=== PATIENT | male | born 1980 | race Caucasian/White ===

== ENCOUNTER 2022-07-12 17:05 | Emergency (ER) | payer BC, SELFPAY ==
--- NOTE | 2022-07-12 17:12 | ED.URI ---
HPI - URI/Sore Throat General Chief Complaint: Upper Respiratory Infection Stated Complaint: ear pain, congestion, cough Time Seen by Provider: 07/12/22 17:13 Source: patient Mode of arrival: ambulatory Limitations: no limitations History of Present Illness HPI Narrative: Mr. Em is a 41-year-old male patient presenting to the clinic today with complaints of low-grade fever, chest congestion, ear pain, and cough x1.5 weeks He reports he is bringing up some brown/green phlegm when he coughs. He denies any known exposure to anyone with COVID, flu, or strep. Related Data Home Medications Medication Instructions Recorded Confirmed losartan 50 mg tablet 50 mg PO HS 07/12/22 07/12/22 omeprazole 40 mg capsule,delayed 40 mg PO DAILY 07/12/22 07/12/22 release sumatriptan 5 mg/actuation nasal 5 mg intranasal DAILY 07/12/22 07/12/22 spray trazodone 100 mg tablet 100 mg PO HS 07/12/22 07/12/22 Allergies Allergy/AdvReac Type Severity Reaction Status Date / Time No Known Allergies Allergy Mild Verified 07/12/22 17:20 PMFSH Comments At the time of my signature, I reviewed and agree with the nursing past medical, surgical, social, and family history. There is no relevant family history pertinent to the patient complaint. Exam Narrative: General: Well-developed, well nourished, in no apparent distress Head: Normocephalic, atraumatic Eyes: Pupils equally round and reactive to light bilaterally, EOM intact, sclera and conjunctive clear, no discharge, lids normal Ears: TMs intact and dull with mild TM bulging ear canals clear, no drainage, grossly hearing normal. Nose: Nares patent, clear nasal discharge, moderate inflammation, frontal sinus tenderness. Mouth: Oropharynx without lesions or masses, good dentition, MMM. Postnasal drip Neck: Supple, trachea midline, no enlargement of anterior or posterior cervical nodes, no thyroid masses or goiter palpable. Cardio: Regular rate and rhythm, s1 and s2 normal, no murmur appreciated. Resp: Lung sounds mildly coarse, no rhonchi, rales, wheezing or rubs Course Course Emergency Course: Portions of this record may have been created with voice recognition software. Level of Care: Express Care Visit Vital Signs Vital signs: Vital signs reviewed MDM - URI/Sore Throat MDM Narrative Medical decision making narrative: At the time of visit patient is resting comfortably on exam table. I suspect the patient has acute rhinosinusitis as well as bronchitis. Prescriptions for albuterol, Augmentin, and prednisone was sent to the pharmacy. Supportive measures were discussed with the patient and his and they voiced understanding of discharge instructions and agreed to the treatment plan. Differential Diagnosis Differential diagnosis: Likely upper respiratory infection, otitis media, sinusitis, viral infection, bronchitis, influenza, pharyngitis and other (COVID) Discharge Plan Discharge Clinical Impression: Sinusitis, Bronchitis Patient Disposition: Home, Self-Care Condition: Stable Instructions: Antibiotic Form, Acute Bronchitis (ED), Rhinosinusitis (ED) Additional Instructions: Take prescription medications only as prescribed-take prednisone, Augmentin, and albuterol as prescribed Increase fluids and stay well hydrated Tylenol/motrin for pain/fever Flonase and OTC antihistamines as directed Vicks vapor rub to open sinuses Sinus rinses for congestion Cepacol spray, cough drops, throat lozenges, warm tea with honey/lemon, gargle salt water to soothe throat BRAT diet for diarrhea Clear liquids x 24 hours then advance as tolerated for nausea/vomiting May return to the clinic if symptoms worsen Go to the ED if you develop a worsening in your condition- high fever not controlled by Tylenol or Motrin, dehydration, weakness, lethargy, shortness of breath, or chest pain. Follow up with your PCP in 3-5 days if symptoms persist. Prescriptions: New a
[2022-07-12 17:18] VITALS: BP 143/100; PULSE 89; RESP 18; TEMP 37.3; O2SAT 100
== END 2022-07-12 17:35 | disposition home or self-care (01) ==
PROVIDERS: Emergency Provider Nurse Practitioner Family; PCP Internal Medicine Infectious Disease
DX: J32.9 Chronic sinusitis, unspecified (principal); J40 Bronchitis, not specified as acute or chronic; I10 Essential (primary) hypertension; K21.9 Gastro-esophageal reflux disease without esophagitis; Z86.16 Personal history of COVID-19
CPT/HCPCS: 99203; G0463

== ENCOUNTER 2022-07-19 17:18 | Emergency (ER) | payer BC, SELFPAY ==
[2022-07-19 17:29] VITALS: BP 143/98; PULSE 73; RESP 16; TEMP 37.1; O2SAT 100
--- NOTE | 2022-07-19 17:38 | ED.URI ---
HPI - URI/Sore Throat General Chief Complaint: Upper Respiratory Infection Stated Complaint: ear pain, sore throat,headache,fever,chest pain Time Seen by Provider: 07/19/22 17:42 Source: patient and RN notes reviewed Mode of arrival: ambulatory Limitations: no limitations History of Present Illness HPI Narrative: 41-year-old male presents concern for ongoing and worsening left ear pain, sore throat, general malaise, fever, headache He reports he was treated 7 days ago for bronchitis with Augmentin, steroids, inhaler. He reports his cough is mostly resolved, he is finished the steroid, he is still taking the Augmentin. He reports he is having severe left ear pain, worsening ear and throat pain with swallowing, difficulty swallowing. He reports he had a low-grade fever yesterday. He denies any neck or facial swelling, warmth, redness. Reports some jaw tenderness. Reports he has recently had a dental checkup and is not having any dental pain. MD elicited complaint: fever and other (Ear pain) Related Data Home Medications Medication Instructions Recorded Confirmed losartan 50 mg tablet 50 mg PO HS 07/12/22 07/19/22 omeprazole 40 mg capsule,delayed 40 mg PO DAILY 07/12/22 07/19/22 release sumatriptan 5 mg/actuation nasal 5 mg intranasal DAILY 07/12/22 07/19/22 spray trazodone 100 mg tablet 100 mg PO HS 07/12/22 07/19/22 Allergies Allergy/AdvReac Type Severity Reaction Status Date / Time No Known Allergies Allergy Mild Verified 07/19/22 17:34 Review of Systems Review of Systems: CONSTITUTIONAL: Reports malaise, sweats, low-grade fever. EYES: Denies visual changes, redness, or discharge. ENT: Denies rhinorrhea, congestion, sinus pain. Reports sore throat and severe left ear pain CARDIOVASCULAR: Denies chest pain, palpitations, or edema. RESPIRATORY: Denies cough. Denies dyspnea. GASTROINTESTINAL: Denies abdominal pain, nausea, vomiting, diarrhea SKIN: Denies rash or itching. MUSCULOSKELETAL: Denies myalgia. NEUROLOGIC: Reports headache. All systems reviewed & are unremarkable except as noted in HPI and below PMFSH Comments At time of signature, agree with nursing past medical, surgical, social and family history. There is no relevant family history pertinent to the presenting complaint Exam Narrative: GENERAL: Nontoxic appearing and in no acute distress. HEAD: Normocephalic EYES: PERRLA, conjunctivae clear ENT: Nares clear. Mucous membranes moist. Right TM pearly tam with sharp light reflex, left TM not bulging slightly dull reflex, otherwise unremarkable, no tragal tenderness. Oropharynx not erythematous without lesions. Tonsils not enlarged and without exudate, no drooling, no hoarseness, no trismus. Uvula is midline, however some asymmetry is noted in the oropharynx, no visible abscess or mass noted NECK: Supple. Mild left lymphadenopathy and tenderness CHEST: Clear to auscultation, breath sounds equal. No wheezing, rhonchi, rales, or stridor. No respiratory distress, speaks in full sentences. HEART: Regular rate and rhythm. No murmur heard. SKIN: Warm, dry, no rash. NEURO: Alert and oriented x3. PSYCH: Normal mood and affect Course Course Emergency Course: Patient's pain is not explained by his physical exam. Patient was advised to seek further evaluation in the emergency department for possible imaging of his neck to rule out abscess that may be causing his pain. Patient stated multiple times he does not want to go to the emergency room tonight, he has an appointment with his primary care physician tomorrow. Patient was advised that if symptoms change or worsen in any way he should go to the emergency room. Patient and his states understanding. Anticipatory guidance given. Patient agrees to follow-up as directed and is aware of reasons to seek care at the emergency department. Portions of this record may have been created with voice recognition software Level of Care: [facility] Care Visit Vital Sig
== END 2022-07-19 18:01 | disposition home or self-care (01) ==
PROVIDERS: Emergency Provider Nurse Practitioner; PCP Internal Medicine Infectious Disease
DX: H92.02 Otalgia, left ear (principal); I10 Essential (primary) hypertension; K21.9 Gastro-esophageal reflux disease without esophagitis; Z86.16 Personal history of COVID-19
CPT/HCPCS: 99213; G0463

== ENCOUNTER 2024-06-20 08:38 | Outpatient (CLI) | payer BC, SELFPAY ==
--- NOTE | 2024-07-09 10:41 | WPDHOMESLEEP ---
Sleep Study - Home Unattended Date of Study: 06/20/24 Ordering Provider: Gonzales Lee MD Interpreting Provider: Katherine Pinto MD Home Sleep Study Type: Watch PAT Height: 1.78 m Weight: 111.13 kg Body Mass Index: 35.2 Neck Circumference (inches): 16 [place]: 6 Reason for Sleep Study Excessive daytime sleepiness Sleep History Valente Em is a 43-year-old man with hypertension and excessive daytime sleepiness. His sleep questionnaire does not indicate that he snores loudly or has witnessed apneas. He does have difficulty breathing when he is on his back. He does not have morning headaches nor does he awaken with a sore throat or dry mouth. He does have heartburn at night. He wakes twice at night to go the bathroom. His normal bedtime is 9:30 p.m. on work days and 10:00 p.m. on days he is off. It takes 30 minutes form to fall asleep. He reports spending 8 hours in bed. He spends about 6 hours sleeping. He does not take naps. Normal wake time is 5:45 a.m. using an alarm on workdays. He does not have difficulty falling asleep or returning to sleep. He does not feel anxious about going to sleep. He grinds or clenches his teeth during sleep. He does have restless feelings in his legs before sleep and he kicks and jerks his legs excessively at night. He feels tired and sleepy during the day, his sleep is unrefreshing and he does have the urge to fall asleep during the day however not while driving. His leg symptoms do not get worse with rest. They do not get better with activities. These occur only in the evening or at night. These do not give him any cause for concern. He does not smoke cigarettes. He drinks 3 or 4 alcoholic beverages at night. He had 2 glasses of alcohol before taking the home sleep test. He drinks more than 5 caffeinated beverages daily. He walks 1 or 2 nights out of the week. He does not work rotating shifts. [facility] Past Medical History Medical History Allergies Anxiety Arthralgia SOLEDAD negative, rheumatoid factor less than 14 With sedimentation rate of 2 on 03/29/2023. BMI 34.0-34.9,adult BMI 35.0-35.9,adult Chronic anxiety Chronic depression Chronic headaches Chronic low back pain with left-sided sciatica Encounter for prostate cancer screening PSA 0.72 on 03/29/2023. Encounter for wellness examination in adult Essential hypertension Gastro-esophageal reflux disease without esophagitis GERD (gastroesophageal reflux disease) Hypersomnia Influenza A (~01/10/24) Insomnia Irritable bowel syndrome with diarrhea Left flank pain Male erectile dysfunction, unspecified Total testosterone 520 with free testosterone 74.3 on 03/29/2023. Migraine without aura and without status migrainosus, not intractable Mixed hyperlipidemia (03/29/23) total cholesterol 230, triglycerides 265, HDL 42, LDL 147 on 03/29/2023. Myalgia CPK normal at 166 with Magnesium 1.9, iron 69 with 19% saturation and ferritin 142 on 03/29/2023. Obesity (BMI 30-39.9) Obesity (BMI 30.0-34.9) Pharyngitis Plant allergic contact dermatitis Seasonal allergic rhinitis Family History Family History Father Asthma Heart disease Mother Asthma Diabetes mellitus Depression Grandparent Carcinoma of colon Social History Social History Smoking status: Never smoker Alcohol intake: current Drinks per week: 1 Alcohol use details: vodka or whiskey Substance use: never Lack of Transportation: No Lack of Food: Never True Current Housing: I Have Housing Concerned About Future Housing: No Difficulty Paying Gas/Electric Bills: No Difficulty Paying for Meds: No Currently Unemployed: No Education: Trade/Vocational Certificate Difficulty w/ Childcare or Family Care: No Medications Home Medications Medication Instructions Recorded
[2024-07-09 10:47] VITALS: BMI 35.2
== END 2024-06-21 10:15 | disposition home or self-care (01) ==
LOC: ANHCSM 08:39
PROVIDERS: PCP Family Medicine; Visit Provider Family Medicine
DX: G47.10 Hypersomnia, unspecified (principal); I10 Essential (primary) hypertension; G47.8 Other sleep disorders; E66.9 Obesity, unspecified; Z68.35 Body mass index [BMI] 35.0-35.9, adult
CPT/HCPCS: 95800